=== PATIENT | female | born 1955 | race African-American/Black ===

== ENCOUNTER 2022-09-07 03:47 | Emergency (ER) | payer MEDICARE, SELFPAY ==
[2022-09-07 03:48] VITALS: BP 165/70; PULSE 60; RESP 18; TEMP 36.8
[2022-09-07 04:38] LABS: Basophils Percent Auto 0.2 % (0.2-1.2); Hematocrit 42.1 % (37.0-47.0); Hemoglobin 14.8 g/dL (12.0-15.0); Immature Granulocyte Absolute 0.03 K/mm3 (0.00-0.031); Immature Granulocyte Percent A 0.3 % (0-0.5); Lymphocytes Absolute Auto 1.42 K/mm3 (0.9-3.2); Lymphocytes Percent Auto 13.6 % (18.3-44.2); Mean Corpuscular HGB Conc 35.2 g/dl (32-36); Mean Corpuscular Hemoglobin 26.8 pg (26-34); Mean Corpuscular Volume 76.1 fl (80-100); Mean Platelet Volume 9.3 fl (7.4-10.4); Monocytes Absolute Auto 0.5 K/mm3 (0.1-0.6); Monocytes Percent Auto 5.2 % (2.6-8.5); Neutrophils Absolute Auto 8.5 K/mm3 (1.3-6.7); Neutrophils Percent Auto 80.7 % (45.5-73.1); Platelet Count Result 366 k/mm3 (150-375); Red Blood Count 5.53 M/mm3 (4.2-5.4); Red Cell Distribution Width 13.9 % (11.5-14.5); White Blood Count 10.5 K/mm3 (4.5-10.0)
[2022-09-07 04:48] LABS: Lactic Acid Reflex 1.6 mmol/L (0.7-2.0)
[2022-09-07 04:49] LABS: Alanine Aminotransferase 17 U/L (6-35); Albumin Level 4.4 g/dL (3.5-5.1); Alkaline Phosphatase 94 U/L (38-126); Anion Gap 9 mmol/L (8-16); Aspartate Amino Transferase 22 U/L (14-36); Bilirubin,Total 0.7 mg/dL (0.2-1.3); Blood Urea Nitrogen 13 mg/dL (7-17); Calcium 9.6 mg/dL (8.4-10.2); Carbon Dioxide 27 mmol/L (22-30); Chloride 99 mmol/L (98-107); Estimated CRCL calculation 62 ml/min; Estimated Glomerular Filt Rate > 60; Glucose 149 mg/dL (65-110); Lipase 54 U/L (23-300); Potassium 4.3 mmol/L (3.4-5.0); Sodium 135 mmol/L (137-145)
[2022-09-07] MEDS: BELLADONNA ALK/PHENOB ELIX 10 ML, MAG HYDROX/ALUMINUM HYD/SIMETH 30 ML, LIDOCAINE HCL 2... PO (05:11)
--- NOTE | 2022-09-07 05:21 | ED.ABDPAIN ---
HPI - Abdominal Pain General Chief Complaint: Abdominal Pain Stated Complaint: ABD PAIN; N/V Time Seen by Provider: 09/07/22 03:55 History of Present Illness HPI narrative: 67-year-old female presenting to the emergency department for evaluation of abdominal pain. Patient had follow-up with her primary care physician was started on baclofen for abdominal pain and states it has not yet resolved patient denies any associate nausea vomiting diarrhea. Patient has no prior history of gastritis. Patient denies any constipation or diarrhea. Patient denies any prior history of abdominal surgeries other than a hysterectomy. Related Data Allergies Allergy/AdvReac Type Severity Reaction Status Date / Time No Known Allergies Allergy Verified 09/07/22 04:00 Review of Systems Review of Systems: All systems reviewed & are unremarkable except as noted in HPI and below Exam Narrative: APPEARANCE: Well appearing, no pain, no distress, well-nourished. HEAD: normocephalic, atraumatic. EYES: PERRLA/EOMI, conjunctivae clear. NOSE: Normal no drainage NECK: Supple. No adenopathy, no masses. RESPIRATORY: Airway patent, respirations nonlabored. Clear to auscultation bilaterally, no rales, rhonchi, wheezing. CARDIOVASCULAR: Regular rate and rhythm without murmurs rubs or gallops. ABDOMINAL: Soft, mild epigastric tenderness to palpation, nondistended, normal bowel sound MUSCULOSKELETAL: Moves all extremities. Strength/ROM intact, No edema, No calf tenderness. NEURO: Alert. Cranial nerves II through XII intact. SKIN: Warm, dry. Normal Color Course Course Emergency Course: 67-year-old female presented to ED for evaluation of epigastric pain. Patient was afebrile with no significant leukocytosis. Patient hemoglobin was stable at 14.8. Patient's CMP was generally within normal limits within normal lactic acid AST ALT alk phos and lipase. Patient was treated with a GI cocktail and did feel improved. Vital Signs Vital signs: Vital Signs Temperature 98.2 F 09/07/22 03:48 Pulse Rate 60 09/07/22 03:48 Respiratory Rate 18 09/07/22 03:48 Blood Pressure 165/70 H 09/07/22 03:48 Oxygen Delivery Room Air 09/07/22 03:48 Temperature 98.2 F 09/07/22 03:48 Pulse Rate 76 09/07/22 05:52 Respiratory Rate 17 09/07/22 05:52 Blood Pressure 190/92 H 09/07/22 05:52 Pulse Oximetry 100 09/07/22 05:52 Oxygen Delivery Room Air 09/07/22 03:48 MDM - Abdominal Pain Differential Diagnosis Differential diagnosis: Likely abdominal pain and gastroenteritis Lab Data 09/07/22 04:33 09/07/22 04:33 Labs: Lab Results 09/07/22 Range/Units 04:33 WBC 10.5 H (4.5-10.0) K/mm3 RBC 5.53 H (4.2-5.4) M/mm3 Hgb 14.8 (12.0-15.0) g/dL Hct 42.1 (37.0-47.0) % MCV 76.1 L (80-100) fl MCH 26.8 (26-34) pg MCHC 35.2 (32-36) g/dl RDW 13.9 (11.5-14.5) % Plt Count 366 (150-375) k/mm3 MPV 9.3 (7.4-10.4) fl Immature Gran % (Auto) 0.3 (0-0.5) % Neut % (Auto) 80.7 H (45.5-73.1) % Lymph % (Auto) 13.6 L (18.3-44.2) % [place] % (Auto) 5.2 (2.6-8.5) % Eos % (Auto) 0.0 (0-4.4) % Baso % (Auto) 0.2 (0.2-1.2) % Lymph # (Auto) 1.42 (0.9-3.2) K/mm3 [place] # (Auto) 0.5 (0.1-0.6) K/mm3 Eos # (Auto) 0.0 (0-0.3) K/mm3 Baso # (Auto) 0.0 (0.0-0.1) K/mm3 Abs Immat Gran (auto) 0.03 (0.00-0.031) K/mm3 Absolute Neuts (auto) 8.5 H (1.3-6.7) K/mm3 Absolute Nucleated RBC 0.0 (0.0-0.012) K/mm3 Nucleated RBC % 0.0 (0.0-0.2) % Sodium 135 L (137-145) mmol/L Potassium 4.3 (3.4-5.0) mmol/L Chloride 99 (98-107) mmol/L Carbon Dioxide 27 (22-30) mmol/L Anion Gap 9 (8-16) mmol/L BUN 13 (7-17) mg/dL Creatinine 0.80 (0.7-1.0) mg/dL Estim Creat Clear Calc 62 ml/min Estimated GFR > 60 (59 - ) Glucose 149 H (65-110) mg/dL Lactic Acid 1.6 (0.7-2.0) mmol/L Calcium 9.6 (8.4-10.2) mg/dL Total Bilirubin 0.7 (0.2-1.3) mg/dL AST 22 (14-36) U/L A
[2022-09-07 05:52] VITALS: BP 190/92; PULSE 76; RESP 17; O2SAT 100
== END 2022-09-07 05:54 | disposition home or self-care (01) ==
PROVIDERS: Emergency Provider Emergency Medicine
DX: K29.70 Gastritis, unspecified, without bleeding (principal)
CPT/HCPCS: 36415; 80053; 83605; 83690; 85025; 99283; A9270